=== PATIENT | male | born 1955 | race Caucasian/White ===

== ENCOUNTER 2020-11-08 12:19 | Emergency (ER) | payer OTHER, MEDICARE ==
[~2020-11-08 12:19] MED LIST: ASPIRIN EC81 MG PO; COREG 6.25MG6.25 MG PO; CRESTOR10 MG PO; LISINOPRIL-HCT1 EAC1 PO; LOVAZA1 GM PO; NORVASC5 MG PO; SINEQUAN10 MG PO; WELLBUTRIN XL300 MG PO; ZYRTEC10 M3 PO
== END 2020-11-08 15:20 | disposition other institution (70) ==
LOC: FER 12:19
DX: S02.31XA Fracture of orbital floor, right side, initial encounter for closed fracture (principal); S02.2XXA Fracture of nasal bones, initial encounter for closed fracture; I10 Essential (primary) hypertension; F17.210 Nicotine dependence, cigarettes, uncomplicated; Y04.2XXA Assault by strike against or bumped into by another person, initial encounter; Y92.22 Religious institution as the place of occurrence of the external cause
CPT/HCPCS: 70450; 70486

== ENCOUNTER 2021-06-10 15:30 | Emergency (ER) | payer OTHER, MEDICARE ==
[2021-06-10 15:57] LABS: BASOPHIL 1.1 % (0-2); EOSINOPHIL 5.1 % (0-7); HCT 46.5 % (42.0-52.0); HGB 15.8 g/dl (13.2-18.0); LYMPHOCYTE 28.2 % (15-48); MCH 30.5 pg (25.0-31.0); MCV 89.8 fL (78.0-100.0); MPV 8.8 fL (6.0-9.5); NEUTROPHIL 55.3 % (41-80); NRBC 0; PLT 184 K/uL (150-400); RBC 5.18 M/uL (4.70-6.00); RDW 12.9 % (11.5-14.0); WBC 6.5 K/uL (4.0-10.5)
[2021-06-10 16:37] LABS: ALBUMIN 3.7 g/dL (3.4-5.0); BILIRUBIN - TOTAL 0.3 mg/dL (0.2-1.0); CREATININE 0.87 mg/dL (0.67-1.17); GLOBULIN (CALCULATION) 3.4 g/dL; POTASSIUM 3.9 mmol/L (3.5-5.1); TOTAL PROTEIN 7.1 g/dL (6.4-8.2)
== END 2021-06-10 21:55 | disposition home or self-care (01) ==
LOC: FER 15:30
PROVIDERS: Internal Medicine
DX: F10.129 Alcohol abuse with intoxication, unspecified (principal); F31.9 Bipolar disorder, unspecified; I25.2 Old myocardial infarction; Z86.73 Personal history of transient ischemic attack (TIA), and cerebral infarction without residual deficits; Y90.8 Blood alcohol level of 240 mg/100 ml or more
CPT/HCPCS: 36415; 70450; 80053; 85025; G0480